=== PATIENT | female | born 1990 | race American Indian/Alaskan Native ===

== ENCOUNTER 2021-02-22 10:30 | Emergency (ER) | payer MEDICAID ==
[2021-02-22] MEDS ORDERED: SODIUM CHLORIDE 0.9% 1000 ML 1,000 ML IV ONE ×2 (10:34→14:07)
[2021-02-22] MEDS ORDERED: ONDANSETRON 4 MG/2 ML INJ IV NR (10:34)
[2021-02-22] MEDS ORDERED: MORPHINE 4 MG/1 ML INJ IV NR (10:34)
[2021-02-22 10:40] VITALS: BP 112/68
--- NOTE | 2021-02-22 10:44 | Emergency Department Report ---
ED Abdominal Pain HPI - General Stated Complaint: ABDOMINAL PAIN Time Seen by Provider: 02/22/21 10:34 Source: patient, EMS - History of Present Illness Initial Comments: Patient is 30 years old female with no significant past medical history. Patient is 3 para 2 at 15 weeks gestation. Patient stated that she follow-up with OB at [place]. Patient brought to the emergency room via EMS from home for evaluation of lower abdominal pain crampy in nature started this morning. Patient described her pain as 7 out of 10 and intense sometimes. She denied any vaginal bleeding or vaginal discharge. Patient stated that she did not have any issue with her until this morning. She denied any fever, chills, nausea or vomiting. MD Complaint: abdominal pain -: This morning Location: RLQ, R flank Migration to: no migration Severity scale (0 -10): 7 Quality: cramping - Related Data Allergies Allergy/AdvReac Type Severity Reaction Status Date / Time No Known Allergies Allergy Verified 02/22/21 10:39 ED Review of Systems ROS: Stated complaint: ABDOMINAL PAIN Other details as noted in HPI Comment: All other systems reviewed and negative Constitutional: denies: chills, fever Respiratory: denies: cough, shortness of breath, SOB with exertion Gastrointestinal: abdominal pain. denies: nausea, vomiting, diarrhea, constipation, hematemesis, melena Musculoskeletal: denies: back pain Neurological: denies: headache, weakness, numbness, paresthesias, confusion, abnormal gait ED Physical Exam - General General appearance: alert, in no apparent distress - Head Head exam: Present: atraumatic, normocephalic, normal inspection - Eye Eye exam: Present: normal appearance, PERRL - ENT ENT exam: Present: normal exam, normal orophraynx, mucous membranes moist - Neck Neck exam: Present: normal inspection, full ROM. Absent: tenderness, meningismus - Respiratory Respiratory exam: Present: normal lung sounds bilaterally. Absent: respiratory distress, wheezes, rales, rhonchi, stridor, chest wall tenderness, accessory muscle use, decreased breath sounds, prolonged expiratory - Cardiovascular Cardiovascular Exam: Present: regular rate, normal rhythm, normal heart sounds - GI/Abdominal GI/Abdominal exam: Present: soft, normal bowel sounds, other. Absent: distended, tenderness, guarding, rebound, rigid, organomegaly, mass, bruit, pulsatile mass, hernia - Extremities Exam Extremities exam: Present: normal inspection, full ROM, normal capillary refill. Absent: tenderness, pedal edema, joint swelling, calf tenderness - Back Exam Back exam: Present: normal inspection, full ROM. Absent: CVA tenderness (R), CVA tenderness (L) - Neurological Exam Neurological exam: Present: alert, oriented X3, CN II-XII intact, normal gait, reflexes normal - Psychiatric Psychiatric exam: Present: anxious - Skin Skin exam: Present: warm, intact, normal color ED Course Vital Signs 02/22/21 10:38 Temperature 98.1 F Pulse Rate 85 Respiratory 16 Rate Blood Pressure 112/68 [Right] O2 Sat by Pulse 99 Oximetry ED Medical Decision Making - Lab Data Result diagrams: 02/22/21 12:13 02/22/21 12:13 - Radiology Data Radiology results: report reviewed - Medical Decision Making Patient is 30 years old female with no significant past medical history. Patient is 3 para 2 at 15 weeks gestation. Patient stated that she follow-up with OB at [place]. Patient brought to the emergency room via EMS from home for evaluation of lower abdominal pain crampy in nature started this morning. Patient described her pain as 7 out of 10 and intense sometimes. She denied any vaginal bleeding or vaginal discharge. Patient stated that she did not have any issue with her until this morning. She denied any fever, chills, nausea or vomiting. Patient received normal saline, morphine and Zofran. Labs reviewed and is unremarkable. ultrasound showed a 15 weeks . Contraction was seen on sonographic views. Patient still denying any vaginal bleeding. Patient advised to follow-up with her OB doctor in the next 2 to 3 days and to return to the ER if she develop any new symptoms. Critical care attestation.: If time is entered above; I have spent that time in minutes in the direct care of this critically ill patient, excluding procedure time. ED Disposition Clinical Impression: Abdominal pain affecting Disposition: 01 HOME / SELF CARE / HOMELESS Is pt being admited?: No Condition: Stable Instructions: Abdominal Pain During , [id number] Referrals: PRIMARY CARE, [Primary Care Provider] - 3-5 Days
--- NOTE | 2021-02-22 12:02 | Ultrasound Report ---
Will be Ultrasound HISTORY: Lower abdominal cramping, month 15 weeks . TECHNIQUE: Grayscale and color imaging performed. COMPARISON: None FINDINGS: There is an intrauterine gestation with variable presentation and crown-rump length measuri ng 9.5 cm. The ultrasound EGA is estimated at 14 weeks and 6 days compared to a clinical estimation o f 14 weeks and 3 days. Heart rate is 154 bpm. Placenta is seen posteriorly. The commercial loan closer reports myometrial contractions during the exam. The ovaries are unremarkable. IMPRESSION: Single viable intrauterine gestation as above. Engraving Operator reports contractions during th e exam. Please correlate with exam findings. Signer Name: Armin Ortega MD Signed: 02/22/2021 11:58 AM Workstation Name: [id number]
[2021-02-22 12:43] LABS: Basophils % (Auto) 0.2 % (0.0-1.8); Eosinophils # (Auto) 0.1 K/mm3 (0.0-0.4); Eosinophils % (Auto) 1.6 % (0.0-4.3); Hematocrit 34.6 % (30.3-42.9); Hemoglobin 11.3 gm/dl (10.1-14.3); Lymphocytes # (Auto) 1.8 K/mm3 (1.2-5.4); Lymphocytes % (Auto) 19.7 % (13.4-35.0); Mean Corpuscular HGB Conc 33 % (30-34); Mean Corpuscular Volume 96 fl (79-97); Monocytes # (Auto) 0.9 K/mm3 (0.0-0.8); Platelet Count 239 K/mm3 (140-440); Red Blood Count 3.59 M/mm3 (3.65-5.03); Red Cell Distribution Width 13.2 % (13.2-15.2)
[2021-02-22 12:56] LABS: Alanine Aminotransferase 8 units/L (7-56); Albumin 3.8 g/dL (3.9-5); Blood Urea Nitrogen 10 mg/dL (7-17); Calcium 8.8 mg/dL (8.4-10.2); Hemolysis Index 3
[2021-02-22 13:05] LABS: BUN/Creatinine Ratio 25; Bilirubin,Direct < 0.2 mg/dL (0-0.2)
[2021-02-22] MEDS ORDERED: MORPHINE 4 MG/1 ML INJ IV ONE (14:07)
== END 2021-02-22 15:15 | disposition home or self-care (01) ==
LOC: ED 10:30
DX: O26.892 Other specified pregnancy related conditions, second trimester (principal); R10.9 Unspecified abdominal pain; Z3A.15 15 weeks gestation of pregnancy
CPT/HCPCS: 36415; 76805; 80048; 80076; 84702; 85025; 96361; 96374; 99284; J2270; J2405; J7030; Q0162